=== PATIENT | female | born 1980 | race Caucasian/White ===

== ENCOUNTER 2017-06-04 12:34 | Emergency (ER) | payer OTHER ==
--- NOTE | 2017-06-04 13:50 | ED Physician Documentation ---
PD HPI URI - Stated complaint Stated Complaint: DIFF BREATHING - Chief complaint Chief Complaint: General - History obtained from History obtained from: Patient - History of Present Illness Timing - onset: How many weeks ago (2-3) Timing duration: Weeks (few weeks ill and cough and Seen by PMD with Rx of Amox ; improved and now symptoms again the past few days.) Timing details: Gradual onset, Still present Associated symptoms: Nasal congestion, Productive cough, Dyspnea. No: Fever, Chills, Sore throat, Chest pain, Bilateral edema Contributing factors: Sick contact, Travel, Immunocompromised Similar symptoms before: Has not had sx before Recently seen: Clinic (couple weeks ago) Review of Systems Constitutional: denies: Fever, Chills Nose: denies: Rhinorrhea / runny nose, Congestion Throat: denies: Sore throat Respiratory: reports: Dyspnea, Cough. denies: Wheezing GI: denies: Nausea, Vomiting, Diarrhea Skin: denies: Rash, Lesions PD PAST MEDICAL HISTORY - Past Medical History Cardiovascular: None Respiratory: None : None - Past Surgical History Past Surgical History: Yes General: Cholecystectomy /[employer]: section - Present Medications Home Medications: Ambulatory Orders Medication Instructions Recorded Confirmed Sulfamethoxazole/Trimethoprim 1 each PO BID #14 tablet 12/26/15 [Bactrim Ds Tablet] Albuterol Sulf [Ventolin Hfa 1 - 2 puffs INH Q4HR PRN #1 inhaler 06/04/17 Inhaler] Azithromycin [Zithromax] 250 mg PO DAILY #6 tablet 06/04/17 Dexamethasone [Decadron] 4 mg PO DAILY #5 tablet 06/04/17 guaiFENesin/CODEINE [Robitussin AC] 10 ml PO Q6H PRN #240 ml 06/04/17 - Allergies Allergies/Adverse Reactions: Allergies Allergy/AdvReac Type Severity Reaction Status Date / Time No Known Drug Allergies Allergy Verified 06/04/17 12:49 - Social History Does the pt smoke?: No Smoking Status: Never smoker Does the pt drink ETOH?: No Does the pt have substance abuse?: No - Immunizations Immunizations are current?: Yes - POLST Patient has POLST: No PD ED PE NORMAL - Vitals Vital signs reviewed: Yes - General General: Alert and oriented X 3, No acute distress, Well developed/nourished - HEENT HEENT: Moist mucous membranes, Pharynx benign - Neck Neck: Supple, no meningeal sign, No adenopathy - Cardiac Cardiac: RRR, No murmur - Respiratory Respiratory: Clear bilaterally - Abdomen Abdomen: Soft, Non tender - Derm Derm: Normal color, Warm and dry, No rash - Neuro Neuro: Alert and oriented X 3, No motor deficit, Normal speech Results - Vitals Vitals: Oxygen O2 Source Room air - Rads (name of study) chest Radiology: Prelim report reviewed (some central interstitial changes c/w bronchitis), EMP read contemporaneously PD MEDICAL DECISION MAKING - ED course Complexity details: reviewed results, considered differential, d/w patient Departure - Departure Disposition: Home, Self Care Clinical Impression: Upper respiratory infection Qualifiers: URI type: unspecified URI Qualified Code(s): J06.9 - Acute upper respiratory infection, unspecified Condition: Stable Record reviewed to determine appropriate education?: Yes Instructions: ED Upper Resp Infec Abx Tx Follow-Up: Aj Chappell MD [Primary Care Provider] - Prescriptions: Albuterol Sulf [Ventolin Hfa Inhaler] 1 - 2 puffs INH Q4HR PRN #1 inhaler PRN Reason: Shortness Of Air/Wheezing Azithromycin [Zithromax] 250 mg PO DAILY #6 tablet Dexamethasone [Decadron] 4 mg PO DAILY #5 tablet guaiFENesin/CODEINE [Robitussin AC] 10 ml PO Q6H PRN #240 ml PRN Reason: Cough Comments: This more likely is viral and so we will treated with the albuterol inhaler 2 puffs 4 times a day regularly for the next 7-10 days. Also Decadron for inflammation of the bronchioles and that usually helps quite a bit. Take that daily for the next 5 days as well. Use codeine cough medicine if needed for cough. Drink lots of fluids. The character of your cough and all would raise possibility of atypical bacterial infection instead and so we will treat with Zithromax for 5 days as well. Recheck if not improving over the next several days. There may be some residual cough but usually not feeling bad for several weeks. Discharge Date/Time: 06/04/17 14:41
--- NOTE | 2017-06-04 14:25 | XRAY Preliminary Report ---
Exam: XR CHEST 2 VIEW PA/LAT IMPRESSION: Mild interstitial prominence, possibly bronchitis. [facility] SITE ID: [id number]
--- NOTE | 2017-06-04 14:28 | XRAY Report ---
EXAM: CHEST RADIOGRAPHY EXAM DATE: 06/04/2017 01:58 PM. CLINICAL HISTORY: Cough. COMPARISON: None. TECHNIQUE: 2 views. FINDINGS: Lungs/Pleura: Mild interstitial prominence. No localized infiltrate or consolidation. No effusion or pneumothorax. Mediastinum: Heart and mediastinal contours are unremarkable. Upper lobe vessels not distended. Other: None. IMPRESSION: Mild interstitial prominence, possibly bronchitis. [facility] Referring Provider Line: [phone] SITE ID: [id number]
[2017-06-04 14:31] VITALS: BP 104/74
== END 2017-06-04 14:41 | disposition home or self-care (01) ==
LOC: ED 12:34
DX: J06.9 Acute upper respiratory infection, unspecified (principal)
CPT/HCPCS: 71020; 99283

== ENCOUNTER 2020-02-28 12:46 | Emergency (ER) | payer OTHER ==
[2020-02-28 12:52] VITALS: BP 121/72
--- NOTE | 2020-02-28 13:45 | ED Physician Documentation ---
History of Present Illness - Stated complaint Stated Complaint: RT FACIAL PX - Chief complaint Chief Complaint: General - Additonal information Additional information: 39-year-old female presents to the emergency department for evaluation of right lower facial pain as well as a cord sore on her lower lip. She reports that on Wednesday she developed a cold sore which is her now fourth cold sore since September of this year. She has been placing Abreva on it but while wearing the mask the sore has gotten progressively larger and she now some pain spreading down the right lower jaw. She reports that she typically gets a cold sore once a year or every other year and has never had so many in a short period of time. She has never taken antivirals nor has she taken suppressive therapy. She denies any fevers sore throat and trouble swallowing or headache. 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 - Present Medications Home Medications: Ambulatory Orders Medication Instructions Recorded Confirmed Sulfamethoxazole/Trimethoprim 1 each PO BID #14 tablet 12/26/15 [Bactrim Ds Tablet] Albuterol Sulf [Ventolin Hfa 1 - 2 puffs INH Q4HR PRN #1 inhaler 06/04/17 Inhaler] Azithromycin [Zithromax] 250 mg PO DAILY #6 tablet 06/04/17 dexAMETHasone [Decadron] 4 mg PO DAILY #5 tablet 06/04/17 guaiFENesin/CODEINE [Robitussin AC] 10 ml PO Q6H PRN #240 ml 06/04/17 Acyclovir 400 mg PO TID #21 tablet 02/28/20 - Allergies Allergies/Adverse Reactions: Allergies Allergy/AdvReac Type Severity Reaction Status Date / Time No Known Drug Allergies Allergy Verified 06/04/17 12:49 - Social History Does the pt smoke?: No Smoking Status: Never smoker Does the pt drink ETOH?: No Does the pt have substance abuse?: No - Immunizations Immunizations are current?: Yes - POLST Patient has POLST: No PD ED PE NORMAL - General General: Alert and oriented X 3, No acute distress - HEENT HEENT: PERRL, EOMI, Ears normal, Moist mucous membranes, Pharynx benign, Dentition benign, Other (1 cm crusting vesicular lesion right lower lip c/w herpes labialis) - Neck Neck: Supple, no meningeal sign, No adenopathy - Cardiac Cardiac: RRR, No murmur - Respiratory Respiratory: No respiratory distress - Abdomen Abdomen: Normal bowel sounds, Soft, Non tender Results - Vitals Vitals: Vital Signs - 24 hr 02/28/20 12:48 Temperature 36.8 C Heart Rate 58 L Respiratory 16 Rate Blood Pressure 121/72 O2 Saturation 97 Oxygen O2 Source Room air PD MEDICAL DECISION MAKING - ED course Complexity details: considered differential, d/w patient, d/w family ED course: 39-year-old female here for evaluation of a cold sore on her right lower lip and some associated right-sided facial pain. The cold sore has gotten progressively larger over the last 4 to 5 days as she has needed to wear a mask for work. There is no erythema surrounding the cold sore or drainage to suggest a superficial infection or cellulitis. Her teeth also appear in good repair and there is no pain with palpation of the teeth therefore I also doubt dental infection. I have recommended to her that given the recurrence and frequency of the cold sores over the last few months that she may benefit from suppressive antiviral therapy. At this time though we will prescribe an initial course of antivirals for the cold sores she has never taken them before. She denies the possibility of . She reports her has a vasectomy and she has had a partial hysterectomy. Departure - Departure Disposition: 01 Home, Self Care Clinical Impression: Herpes simplex labialis Condition: Stable Record reviewed to determine appropriate education?: Yes Instructions: Herpes Care Sores, Sores Cold Ch Prescriptions: Acyclovir 400 mg PO TID #21 tablet Comments: Let us have you start taking the acyclovir as prescribed. If you can avoid wea ring a mask as I feel it is likely making the cold sore worse. I would also recommending placing a simple antibiotic ointment over the cold sore anything like Neosporin or bacitracin. When you see your doctor on Wednesday to discuss if you would be appropriate to be started on long-term antiviral therapy for suppression of recurrent cold sores
== END 2020-02-28 14:02 | disposition home or self-care (01) ==
LOC: ED 12:46
DX: B00.1 Herpesviral vesicular dermatitis (principal)
CPT/HCPCS: 99282; 99284